=== PATIENT | female | born 1995 | race Asian ===

== ENCOUNTER 2017-02-02 09:07 | Emergency (ER) | payer OTHER ==
[2017-02-02 09:13] VITALS: BP 108/76; PULSE 67; RESP 16; TEMP 97.9; O2SAT 97
--- NOTE | 2017-02-02 09:40 | EDPHY ---
H & P Stated Complaint: L arm wound cut on glass last night HPI/ROS: Chief complaint: Left forearm laceration History of present illness: This is a 21-year-old female who presents to the emergency department for left forearm laceration. Patient cut her left forearm on a piece of broken glass last night, 12 hours ago. She did explore the wound and did not find any foreign bodies. The wound was cleaned. She dressed it. She presents today for re-evaluation. She states there is minimal pain with the wound. No bleeding. No abnormal coolness or paresthesias to the left upper extremity. She is moving the left upper extremity without difficulty. Her tetanus is up-to-date. - Personal History LMP (Females 10-55): 1-7 Days Ago Current Tetanus/Diphtheria Vaccine: Yes Current Tetanus Diphtheria and Acellular Pertussis (TDAP): Yes Tetanus Vaccine Date: 2013 - Medical/Surgical History Hx Asthma: No Hx Chronic Respiratory Disease: No Hx Diabetes: No Hx Cardiac Disease: No Hx Renal Disease: No Hx Cirrhosis: No Hx Alcoholism: No Hx HIV/AIDS: No Hx Splenectomy or Spleen Trauma: No Other PMH: R/A - Social History Smoking Status: Never smoked - Physical Exam Exam: General: Alert, nontoxic Skin: There is a 0.5 cm wound to the left forearm over the dorsal surface. It is explored and goes down 1-1.5 cm at an angle. No deep structures are visualized. No foreign bodies are visualized. Musculoskeletal: Patient is moving all joints in all digits in all adorno well. Patient is moving the wrist in all adorno well although there is discomfort with extension of the wrist. Patient is moving the left elbow with flexion and extension and pronation and supination well. Vascular: Radial pulses 2+. Capillary refill brisk in the left hand. Neurologic: Sensation intact throughout the left hand and the rest of the extremity. Constitutional: Initial Vital Signs Temperature (C) 36.6 C 02/02/17 09:10 Heart Rate 67 02/02/17 09:10 Respiratory Rate 16 02/02/17 09:10 Blood Pressure 108/76 02/02/17 09:10 O2 Sat (%) 97 02/02/17 09:10 O2 Delivery Mode Room Air Allergies/Adverse Reactions: ibuprofen Allergy (Verified 02/02/17 09:09) Home Medications: Medication Instructions Recorded Emverm 02/02/17 Medical Decision Making Procedures: Procedure: Splint placement. A Velcro wrist splint was applied. After application of the splint I returned and re-examined the patient. The splint was adequately immobilizing the joint and distal to the splint the patient's circulation and sensation was intact. ED Course/Re-evaluation: Patient seen under the supervision of my secondary supervising physician Dr. Juanjo Clark. Patient presents to the emergency department for a wound to her left forearm. The left upper extremity is neurovascularly intact. She has good musculoskeletal control with good strength but there is soreness with extension of the wrist. The wound is anesthetized and thoroughly irrigated. It is explored to its base. I do not appreciate deep structure injury or foreign body contamination. Given this is more of a puncture wound then laceration and the length of time since the injury I will not primarily closed, I believe it best to allow to heal by secondary intention. Patient is placed in a wrist splint to allow the forearm muscles to rest. She is discharged home. Home care is discussed. She is referred to a hand doctor for recheck. Strict return precautions are given. Patient voiced understanding and agreement with plan. Differential Diagnosis: Included but not limited to puncture wound, laceration, foreign body contamination, deep structure injury Departure - Departure Disposition: Home, Routine, Self-Care Clinical Impression: Puncture wound Condition: Good Instructions: Puncture Wound (ED) Additional Instructions: Follow-up with your primary care doctor or hand doctor next week for recheck If symptoms worsen or new symptoms develop return to the emergency room for recheck Referrals: ERICK BRAY [Other] - As per Instructions Simone Arcos MD [Medical Doctor] - As per Instructions
== END 2017-02-02 09:51 | disposition home or self-care (01) ==
DX: S51.832A Puncture wound without foreign body of left forearm, initial encounter (principal); W25.XXXA Contact with sharp glass, initial encounter